=== PATIENT | male | born 2000 | race Caucasian/White ===

== ENCOUNTER 2022-12-27 18:00 | Emergency (ER) | payer SELFPAY ==
[~2022-12-27] VITALS: Ht 170.2 cm; Wt 77.0 kg
[2022-12-27 18:28] VITALS: BP 118/73; PULSE 74; RESP 16; TEMP 98.4; O2SAT 100
[2022-12-27] MEDS ORDERED: TETANUS, DIPHTHERIA, PERTUSSIS VAC/PF 0.5ML (>10YR OLD) IM ONE (19:15)
[2022-12-27] MEDS ORDERED: LIDOCAINE HCL/PF 1% 10 MG/ML 5ML VIAL INFIL ONE (19:15)
[2022-12-27] MEDS ORDERED: BO1 TP (20:16)
== END 2022-12-27 20:34 | disposition home or self-care (01) ==
LOC: ER 18:00
DX: S61.011A Laceration without foreign body of right thumb without damage to nail, initial encounter (principal); W26.0XXA Contact with knife, initial encounter; Y93.9 Activity, unspecified; Y92.89 Other specified places as the place of occurrence of the external cause; Y99.8 Other external cause status
CPT/HCPCS: 99282; 12001; J3490; 90715